=== PATIENT | female | born 1990 | race African-American/Black ===

== ENCOUNTER 2019-02-12 07:15 | Day surgery (SDC) | payer BC ==
[~2019-02-12] VITALS: Ht 162.6 cm; Wt 78.0 kg
[~2019-02-12 07:15] MED LIST: BIOTIN1 M1 PO; GLUCOPHAGE500 MG PO; PHENTERMINE H37.5 MG PO; VITAMIN D32000 UNI2 PO
[2019-02-12 08:03] VITALS: BP 124/77
--- NOTE | 2019-02-12 08:24 | EKG ---
[address] [place] [address] ELECTROCARDIOGRAM REPORT Name: PANFILO SIEGEL Room #: REG [facility]#: [id number] Admission: 02/12/19 Attend Phys: Guillaume Warren MD Discharge: Date of : 88 Report #: [id number] THIS REPORT FOR: //name// [facility] Test Date: 2019-02-12 Test Time: 07:45:37 Pat Name: PANFILO SIEGEL Department: Room: Gender: F [employer]: MICA : 1990 Requested By: Guillaume Warren Order Number: [id number] MD: Patrice Peace Measurements Intervals [place] Rate: 76 P: 78 [place]: 114 QRS: 31 QRSD: 86 T: 38 QT: 365 QTc: 411 Interpretive Statements Sinus rhythm Borderline short [place] interval No previous ECG available for comparison Electronically Signed On 02-12-2019 8:24:34 CDT by Patrice Peace [email or web address] <ELECTRONICALLY SIGNED> By: Patrice Peace MD, [facility] 02/12/19 0824 0745 0745 Patrice Peace MD, FACC /EPI
--- NOTE | 2019-02-12 08:46 | H ---
[facility] [address] [address] HISTORY AND PHYSICAL Name: ROBBINPANFILO Donte Room #: REG [facility].#: [id number] Admission: 02/12/19 Attend Phys: Guillaume Warren MD Discharge: Date of : 88 Report #: [id number] THIS REPORT FOR: //name// CC: Guillaume Mitchell Linhdouglas Her procedure is scheduled for 02/12/2019. HISTORY OF PRESENT ILLNESS: The patient has difficulty with enlarged tonsils that has been going on for quite some time with difficulty swallowing , gagging and choking on pills. She did not have a lot of problems with tonsil infections when she was younger. She has significant snoring, but she does not think that she has obstructive sleep apnea. She does not have allergy or sinus issues. PAST MEDICAL HISTORY: Otherwise significant for diabetes. MEDICATIONS: Only medication is metformin. ALLERGIES: She is allergic to AMOXICILLIN. PHYSICAL EXAMINATION: Her nose is clear. Her tonsils are 3+ enlarged with deep crypts. There is significant blockage of the nasopharynx. IMPRESSION: Tonsillar hypertrophy, possible adenoid hypertrophy, upper airway obstruction, chronic sinusitis. PLAN: Tonsillectomy and adenoidectomy. <ELECTRONICALLY SIGNED> By: Guillaume Warren MD 02/12/19 0846 1655 1713 Guillaume Warren MD /nt
[2019-02-12 10:50] VITALS: BP 124/77
[2019-02-13] MEDS ORDERED: ZOFRAN ODT4 MG PO ×2 (02:43→02:45)
--- NOTE | 2019-02-13 16:06 | PATH ---
[facility] [address] [place] [address] PATHOLOGY RPT PROCEDURE Name: THERESA MUJICA Room #: [facility] [place].#: [id number] Admission: 02/12/19 Date of : 88 Discharge: 02/12/19 Report #: [id number] Path Case #: [id number] [facility] Accession Number: [id number] . 01 Material submitted: . PART A: tonsil - RIGHT TONSIL AND ADENOIDS. Modifiers: right PART B: tonsil - LEFT TONSIL. Modifiers: left . 01 Clinical history: . Chronic tonsillitis, hypertrophy of tonsils . 02 Diagnosis: A. Right tonsil and adenoid, tonsillectomy and adenoidectomy: - Acutely inflamed epithelium overlying lymphoid tissue with reactive hyperplasia. . B. Left tonsil, tonsillectomy: - Acutely inflamed epithelium overlying lymphoid tissue with reactive hyperplasia along with Actinomyces species. . (IUV:bridget; 02/13/2019) MBR 02/13/2019 1349 Local . 02 Electronically signed: . Taylor Harvey MD, Pathologist NPI- [id number] . 01 Gross description: . A. The specimen is received in formalin, labeled "Theresa Mujica, right tonsil and adenoids". Received is a palatine tonsil measuring 3.7 x 1.7 x 1.7 cm in greatest dimensions. Sectioning reveals pink-egan, homogenous cut surfaces throughout with typical crypts identified. No distinct nodules or lesions are noted grossly. Also received within the specimen container are multiple segments of pale egan lymphoid tissue measuring 3.3 x 2.1 x 1.2 cm in greatest dimensions. The specimen is submitted representatively in cassette A1. . B. The specimen is received in formalin, labeled "Theresa Mujica, left tonsil". Received is a palatine tonsil measuring 3.8 x 2.2 x 1.9 cm in greatest dimensions. Sectioning reveals pink-egan, homogenous cut surfaces throughout with typical crypts identified. No distinct nodules or lesions are noted grossly. The specimen is submitted representatively in cassette B1. (CAA; 02/12/2019) QAC/QA 02/12/2019 1415 Local . 02 Pathologist provided ICD-10: [address] [address] PATHOLOGY RPT PROCEDURE Name: THERESA MUJICA Room #: [facility] M..#: [id number] Admission: 02/12/19 Date of : 88 Discharge: 02/12/19 Report #: [id number] Path Case #: [id number] J35.1, J35. . CPT . 603523, 967472 Specimen Comment: A courtesy copy of this report has been sent to Specimen Comment: [phone], . Specimen Comment: Report sent to / DR OBRIEN Performed at: [address], [place] [id number] MD Larry Green MD Phone: [phone] Performed at: [address] [id number] MD Taylor Harvey MD Phone: [phone]
--- NOTE | 2019-02-26 10:29 | O ---
[facility] [place] [address] OPERATIVE REPORT Name: PANFILO SIEGEL Room #: DEP [facility] M..#: [id number] Admission: 02/12/19 Attend Phys: Guillaume Warren MD Discharge: 02/12/19 Date of : 88 Report #: [id number] THIS REPORT FOR: //name// CC: Guillaume Mitchell [facility] DATE OF SERVICE: 02/12/2019 PREOPERATIVE DIAGNOSES: Chronic tonsillitis with tonsil and adenoid hypertrophy, chronic sinusitis. POSTOPERATIVE DIAGNOSES: Chronic tonsillitis with tonsil and adenoid hypertrophy, chronic sinusitis. OPERATIVE PROCEDURE: Tonsillectomy and adenoidectomy. ANESTHESIA: General endotracheal. DESCRIPTION OF PROCEDURE: The patient was taken to the operating room and placed in the supine position. General anesthesia was induced by endotracheal intubation. Once adequate general anesthesia was obtained, the patient was draped in a sterile manner. A Pablo-Luciano mouth gag was placed in the patient's mouth and tongue was deviated upward. A throat pack was placed. Red rubber catheters were placed through the nose and nasopharynx and out the oropharynx and oral cavity to elevate the soft palate and the nasopharynx was visualized indirectly using a mirror. The adenoid was hypertrophied and adenoidectomy was performed by placing the adenoid curette at the base of the vomer and sweeping downward. The adenoid was removed and sent to pathology. Nasopharyngeal packing was placed. The right tonsil was grasped and deviated towards midline. An incision was placed in the anterior tonsillar pillar using the Bovie electrocautery and a plane between tonsillar capsule and tonsillar fossa was established. Dissection was carried out in this plane using the Bovie and hemostasis was achieved during the dissection. Dissection was carried out from superior to inferior. The inferior pole was incised and posterior tonsillar mucosa was incised. The tonsil was removed and sent to pathology. The left tonsil was removed in exactly the same manner. The area was then irrigated with normal saline. Hemostasis was verified in the tonsillar beds. The nasopharyngeal packing was removed. The nasopharynx was irrigated and there was adequate hemostasis in the nasopharynx as well. The throat pack, mouth gag and red rubber catheters were all removed. The patient tolerated the procedure well. Blood loss approximately 20 mL. The patient was then awoken and taken to the recovery room in stable condition for postoperative monitoring. <ELECTRONICALLY SIGNED> By: Guillaume Warren MD 02/26/19 1029 0942 1000 Guillaume Warren MD /nt
== END 2019-02-12 12:45 | disposition home or self-care (01) ==
LOC: OR 07:15 → TBA 09:40 → OR 10:46
DX: J35.01 Chronic tonsillitis (principal); J35.3 Hypertrophy of tonsils with hypertrophy of adenoids; J32.9 Chronic sinusitis, unspecified; E11.9 Type 2 diabetes mellitus without complications; Z88.8 Allergy status to other drugs, medicaments and biological substances; Z79.899 Other long term (current) drug therapy; Z87.891 Personal history of nicotine dependence; Z98.890 Other specified postprocedural states; K21.9 Gastro-esophageal reflux disease without esophagitis; Z91.041 Radiographic dye allergy status
CPT/HCPCS: 50010; 50101; 62110; 62900; 70005

== ENCOUNTER 2019-02-12 20:11 | Emergency (ER) | payer BC ==
[~2019-02-12] VITALS: Ht 165.1 cm; Wt 78.5 kg
[2019-02-12 23:14] LABS: ABSOLUTE NEUTROPHILS 9.9 thou/uL (1.4-8.2); BASOPHILS 0.3 % (0.0-2.0); HEMATOCRIT 33.9 % (37.0-47.0); HEMOGLOBIN 11.1 gm/dL (12.0-15.0); LYMPHOCYTES 13.2 % (24.0-44.0); MCH 28.5 pg (26.0-34.0); MCHC 32.9 g/dL (28.0-37.0); MCV 86.6 fL (80.0-100.0); MONOCYTES 7.8 % (1.0-8.0); PLATELET COUNT 243 thou/uL (150-400); POLYS 78.7 % (36.0-66.0); RBC 3.91 mil/uL (4.20-5.00); WBC 12.6 thou/uL (4.0-11.0)
[2019-02-12 23:27] LABS: CREATININE 0.8 mg/dL (0.6-1.0); POTASSIUM 5.1 mmol/L (3.5-5.1)
[2019-02-13] MEDS ORDERED: ZOFRAN ODT4 MG PO ×2 (02:43→02:45)
[2019-02-13 02:52] VITALS: BP 115/67
== END 2019-02-13 02:54 | disposition home or self-care (01) ==
LOC: ER 20:11
PROVIDERS: Emergency Medicine
DX: G89.18 Other acute postprocedural pain (principal); R11.0 Nausea; R06.02 Shortness of breath; E11.9 Type 2 diabetes mellitus without complications; E28.2 Polycystic ovarian syndrome; Z88.1 Allergy status to other antibiotic agents; Z91.041 Radiographic dye allergy status